=== PATIENT | female | born 1995 | race Caucasian/White ===

== ENCOUNTER → 2016-12-14 | Emergency (ER) | payer OTHER ==
[~2016-12-14] MED LIST: ALBUTEROL0.09 MG/A1 INH; AMOXICILLIN500 M2 PO; AMOXICILLIN500 MG PO; AMOXIL250 M1 PO; ANAPROX DS550 MG PO; AUGMENTIN 875875 MG PO; BACTRIM DS 8001 TA1 PO; BENADRYL25 MG PO; BIRTH CONTROL1 EAC1 PO; CATAFLAM50 MG PO; CEPHALEXIN500 M1 PO; CIPRO500 MG PO; CLARITIN10 MG PO; CLOTRIM ANTIFUNGAL1% TP; DEPO PROVER150 MG/M1 IM; DIFLUCAN150 MG PO; HYDROCODONE BIT1 T11 PO; IBU-4400 MG PO; IBU-6600 MG PO; KEFLEX500 MG PO; KENALOG0.1% TP; LOMOTIL 0.025 M1 TA1 PO; MEDROL DOSEPAK4 MG PO; MOTRIN400 MG PO; MOTRIN600 MG PO; MOTRIN800 MG PO; NASONEX0.05 MG/AC NAS; NKHM; PEPCID20 MG PO; PREDNICOT20 MG PO; PREDNISONE20 M1 PO; PROAIR HFA0.09 MG/AC IH; PROVENTIL0.09 MG/AC IH; REGLAN10 M1 PO; ROBAXIN500 MG PO; ROBITUSSIN AC 10 MG/ PO; ROBITUSSIN DM 105 ML PO; TRAMADOL HCL50 MG PO; ULTRAM50 MG PO; VENTOLIN 02.5 MG/3 M; VISTARIL25 M1 PO; ZITHROMAX Z PA250 MG PO; ZOFRAN ODT4 MG SL; ZOFRAN ODT8 MG PO
[2016-12-14 21:42] LABS: BILIRUBIN NEGATIVE (NEGATIVE); BLOOD NEGATIVE (NEGATIVE); CLARITY SL CLOUDY (CLEAR); COLOR YELLOW (YELLOW); GLUCOSE NEGATIVE (NEGATIVE); KETONE 3+ (NEGATIVE); LEUKO ESTERASE NEGATIVE (NEGATIVE); NITRITE NEGATIVE (NEGATIVE); PH 5.5 (5.0-9.0); PROTEIN TRACE (NEGATIVE); SPECIFIC GRAVITY >= 1.030 (1.005-1.030)
[2016-12-14 22:01] LABS: BACTERIA 2+; URINE REFLEX COMMENT YES (NO)
== END ==
LOC: ED 18:09
PROVIDERS: Registered Nurse
DX: O26.891 Other specified pregnancy related conditions, first trimester (principal); Z3A.11 11 weeks gestation of pregnancy

== ENCOUNTER 2017-01-28 21:45 | Emergency (ER) | payer OTHER ==
[~2017-01-28] VITALS: Ht 162.5 cm; Wt 67.1 kg
[2017-01-28] MEDS ORDERED: PREDNISONE20 M1 PO (22:07)
== END 2017-01-28 22:24 | disposition home or self-care (01) ==
LOC: ED 21:45
DX: O26.892 Other specified pregnancy related conditions, second trimester (principal); L24.9 Irritant contact dermatitis, unspecified cause; Z3A.18 18 weeks gestation of pregnancy

== ENCOUNTER 2017-03-15 21:27 | Emergency (ER) | payer OTHER ==
[~2017-03-15] VITALS: Ht 162.5 cm; Wt 71.7 kg
[2017-03-15] MEDS ORDERED: PRENATA CHEWAB1 EACH PO (21:41)
[2017-03-15 22:10] LABS: BASO % 0.3 % (0.0-1.0); EOS # 0.1 10*3/uL (0.0-0.4); EOS % 0.5 % (1.0-4.0); HEMATOCRIT 30.1 % (37.0-47.0); HEMOGLOBIN 10.5 g/dl (12.0-16.0); IG # 0.1 10*3/uL (0.0-0.1); LYMPH % 15.2 % (27.0-41.0); MEAN CELL VOLUME 91.2 fl (81.0-99.0); MEAN CORPUSCULAR HGB 31.8 pg (27.0-31.0); MEAN CORPUSCULAR HGB CONC 34.9 g/dl (33.0-37.0); MEAN PLATELET VOLUME 10.9 fl (9.6-12.3); MONO # 0.8 10*3/uL (0.1-1.0); NEUT # 10.1 10*3/uL (2.3-7.9); NEUT % 77.3 % (47.0-73.0); PLATELET COUNT AUTOMATED 220 10*3/uL (130-400); RED CELL DISTRI WIDTH 12.7 % (0-14.5); WHITE BLOOD COUNT 13.1 10*3/uL (4.8-10.8)
[2017-03-15 22:21] LABS: BUN 5 mg/dl (7-24); CARBON DIOXIDE 24 mmol/L (21-32); CHLORIDE 105 mmol/L (98-107); EST GLOM FILT AFRICAN AMERICAN > 60 ml/min; GLUCOSE 84 mg/dL (65-99); POTASSIUM 3.5 mmol/L (3.5-5.1); SODIUM 139 mmol/L (136-145)
[2017-03-15] MEDS ORDERED: SALINE NOSE SPR45 ML NAS (22:47)
== END 2017-03-15 23:25 | disposition home or self-care (01) ==
LOC: ED 21:27
PROVIDERS: Physician Assistant
DX: O26.892 Other specified pregnancy related conditions, second trimester (principal); R04.0 Epistaxis; Z3A.22 22 weeks gestation of pregnancy; Z79.899 Other long term (current) drug therapy

== ENCOUNTER 2017-03-18 20:25 | Emergency (ER) | payer OTHER ==
[~2017-03-18] VITALS: Ht 162.5 cm; Wt 72.6 kg
[~2017-03-18 20:25] MED LIST changes: +PRENATA CHEWAB1 EACH PO; +SALINE NOSE SPR45 ML NAS
== END 2017-03-18 22:20 | disposition short-term general hospital (02) ==
LOC: ED 20:25
DX: O26.892 Other specified pregnancy related conditions, second trimester (principal); M54.5 Low back pain; R10.9 Unspecified abdominal pain; Z79.899 Other long term (current) drug therapy; Z3A.25 25 weeks gestation of pregnancy

== ENCOUNTER 2018-05-21 18:23 | Emergency (ER) | payer OTHER ==
[~2018-05-21] VITALS: Ht 162.5 cm; Wt 72.6 kg
[2018-05-21] MEDS ORDERED: BENADRYL ALLERG25 M5 PO (20:00)
== END 2018-05-21 19:59 | disposition home or self-care (01) ==
LOC: ED 18:23
DX: T63.441A Toxic effect of venom of bees, accidental (unintentional), initial encounter (principal); Z79.899 Other long term (current) drug therapy; Y92.9 Unspecified place or not applicable

== ENCOUNTER 2018-08-02 19:05 | Emergency (ER) | payer MEDICAID ==
[~2018-08-02] VITALS: Ht 162.5 cm; Wt 79.4 kg
[~2018-08-02 19:05] MED LIST changes: +BENADRYL ALLERG25 M5 PO
[2018-08-02] MEDS ORDERED: MUCINEX1200 M1 PO (20:54)
[2018-08-02] MEDS ORDERED: AVPAK AZITHROM250 MG PO (20:54)
[2018-08-02] MEDS ORDERED: PROAIR HFA8.5 GM INH (20:54)
[2018-08-02] MEDS ORDERED: PREDNISONE20 M1 PO (20:54)
== END 2018-08-02 21:00 | disposition home or self-care (01) ==
LOC: ED 19:05
DX: J20.9 Acute bronchitis, unspecified (principal); J09.X2 Influenza due to identified novel influenza A virus with other respiratory manifestations; Z91.010 Allergy to peanuts

== ENCOUNTER 2018-09-27 20:37 | Emergency (ER) | payer MEDICAID ==
[~2018-09-27] VITALS: Ht 162.5 cm; Wt 77.1 kg
[~2018-09-27 20:37] MED LIST changes: +AVPAK AZITHROM250 MG PO; +MUCINEX1200 M1 PO; +PROAIR HFA8.5 GM INH
[2018-09-27] MEDS ORDERED: Motrin,Rufen800 MG PO (22:20)
== END 2018-09-27 22:25 | disposition home or self-care (01) ==
LOC: ED 20:37
DX: M25.562 Pain in left knee (principal); Z91.010 Allergy to peanuts; Z79.2 Long term (current) use of antibiotics; Z79.899 Other long term (current) drug therapy

== ENCOUNTER 2019-08-02 21:56 | Emergency (ER) | payer SELFPAY ==
[~2019-08-02] VITALS: Ht 162.5 cm; Wt 77.1 kg
--- NOTE | ~2019-08-02 | EKG ---
[place], [place] ELECTROCARDIOGRAM REPORT NAME: MARICRUZ SUAREZ UNIT #: [id number] ROOM: DOCTOR: EPIPHANY DRAFT REPORT BIRTHDATE: [birth year] [facility] Test Date: 2019-08-02 Test Time: 22:41:27 Pat Name: MARICRUZ SUAREZ Department: Room: Gender: F [employer]: : 1995 Requested By: NOHELIA NELSON PA-C Order Number: [id number] Reading MD: Ruperto Hinojosa MD Measurements Intervals [place] Rate: 77 P: 61 CA: 183 QRS: 29 QRSD: 94 T: 15 QT: 381 QTc: 432 Interpretive Statements Sinus rhythm Nonspecific ST T changes Electronically Signed On 08-03-2019 4:32:00 PST by Ruperto Hinojosa MD CM:EKGRPT:ELECTROCARDIOGRAM REPORT [id number] NOHELIA NELSON PA-C EPIPHANY DRAFT REPORT NOHELIA NELSON PA-C
[~2019-08-02 21:56] MED LIST changes: +Motrin,Rufen800 MG PO
[2019-08-02 22:42] LABS: BASO # 0.1 10*3/uL (0.0-0.1); BASO % 0.3 % (0.0-1.0); EOS # 0.1 10*3/uL (0.0-0.4); EOS % 0.4 % (1.0-4.0); HEMATOCRIT 31.9 % (37.0-47.0); HEMOGLOBIN 10.5 g/dl (12.0-16.0); LYMPH # 1.5 10*3/uL (1.3-4.4); LYMPH % 9.2 % (27.0-41.0); MEAN CELL VOLUME 94.7 fl (81.0-99.0); MEAN CORPUSCULAR HGB 31.2 pg (27.0-31.0); MEAN CORPUSCULAR HGB CONC 32.9 g/dl (33.0-37.0); MEAN PLATELET VOLUME 11.7 fl (9.6-12.3); MONO # 0.9 10*3/uL (0.1-1.0); MONO % 5.4 % (3.0-9.0); NEUT # 13.8 10*3/uL (2.3-7.9); NEUT % 83.7 % (47.0-73.0); PLATELET COUNT AUTOMATED 178 10*3/uL (130-400); RED BLOOD COUNT 3.37 10*6/uL (4.10-5.10); RED CELL DISTRI WIDTH 12.1 % (0-14.5); WHITE BLOOD COUNT 16.5 10*3/uL (4.8-10.8)
[2019-08-02 23:00] LABS: ALBUMIN 2.7 gm/dl (3.1-4.5); ALKALINE PHOSPHATASE 68 U/L (45-117); BUN 9 mg/dl (7-24); CHLORIDE 108 mmol/L (98-107); CREATININE 0.49 mg/dL (0.55-1.02); LIPASE 103 U/L (73-393); POTASSIUM 3.6 mmol/L (3.5-5.1); SGOT/AST 41 IU/L (3-35); SGPT/ALT 23 U/L (12-78); SODIUM 140 mmol/L (136-145); TOTAL PROTEIN 6.4 gm/dL (6.4-8.2)
[2019-08-02 23:03] LABS: TROPONIN I < 0.015 ng/ml (<0.045)
== END 2019-08-03 02:16 | disposition home or self-care (01) ==
LOC: ED 21:56
PROVIDERS: Physician Assistant
DX: O26.892 Other specified pregnancy related conditions, second trimester (principal); R55 Syncope and collapse; R10.13 Epigastric pain; R53.1 Weakness; J45.909 Unspecified asthma, uncomplicated; Z91.010 Allergy to peanuts; Z3A.27 27 weeks gestation of pregnancy

== ENCOUNTER 2019-12-11 16:40 | Emergency (ER) | payer SELFPAY ==
[~2019-12-11] VITALS: Ht 162.5 cm; Wt 79.4 kg
[2019-12-11 17:54] LABS: BASO # 0.1 10*3/uL (0.0-0.1); BASO % 0.7 % (0.0-1.0); EOS # 0.1 10*3/uL (0.0-0.4); EOS % 0.8 % (1.0-4.0); HEMATOCRIT 40.4 % (37.0-47.0); LYMPH # 2.2 10*3/uL (1.3-4.4); LYMPH % 24.3 % (27.0-41.0); MEAN CORPUSCULAR HGB 29.4 pg (27.0-31.0); MEAN CORPUSCULAR HGB CONC 31.9 g/dl (33.0-37.0); MEAN PLATELET VOLUME 11.7 fl (9.6-12.3); MONO # 0.6 10*3/uL (0.1-1.0); MONO % 6.8 % (3.0-9.0); NEUT # 6.2 10*3/uL (2.3-7.9); NEUT % 67.2 % (47.0-73.0); PLATELET COUNT AUTOMATED 244 10*3/uL (130-400); RED BLOOD COUNT 4.39 10*6/uL (4.10-5.10); RED CELL DISTRI WIDTH 13.6 % (0-14.5); WHITE BLOOD COUNT 9.2 10*3/uL (4.8-10.8)
[2019-12-11 18:11] LABS: ALBUMIN 4.1 gm/dl (3.1-4.5); ALKALINE PHOSPHATASE 64 U/L (45-117); BETA-HCG, QUANT < 1.0 mIU/mL (1-3); BUN 19 mg/dl (7-24); CHLORIDE 109 mmol/L (98-107); CREATININE 0.87 mg/dL (0.55-1.02); LIPASE 107 U/L (73-393); SGOT/AST 9 IU/L (3-35); SGPT/ALT 22 U/L (12-78); SODIUM 139 mmol/L (136-145); TROPONIN I < 0.015 ng/ml (<0.045)
[2019-12-11 19:02] LABS: ACT PARTIAL THROMBO TIME 26.2 SECONDS (20.0-32.1); INTERNATIONAL NORM RATIO 0.9 (2.0-3.5)
== END 2019-12-11 19:40 | disposition short-term general hospital (02) ==
LOC: ED 16:40
PROVIDERS: Emergency Medicine
DX: I63.9 Cerebral infarction, unspecified (principal); J45.909 Unspecified asthma, uncomplicated

== ENCOUNTER 2019-12-31 12:32 | Emergency (ER) | payer OTHER ==
[~2019-12-31] VITALS: Ht 162.5 cm; Wt 79.4 kg
[2019-12-31 13:03] LABS: BASO % 0.5 % (0.0-1.0); EOS # 0.1 10*3/uL (0.0-0.4); EOS % 0.7 % (1.0-4.0); HEMATOCRIT 35.6 % (37.0-47.0); LYMPH % 23.3 % (27.0-41.0); MEAN CELL VOLUME 90.1 fl (81.0-99.0); MEAN CORPUSCULAR HGB 29.4 pg (27.0-31.0); MEAN CORPUSCULAR HGB CONC 32.6 g/dl (33.0-37.0); MEAN PLATELET VOLUME 11.2 fl (9.6-12.3); MONO # 0.5 10*3/uL (0.1-1.0); MONO % 6.3 % (3.0-9.0); NEUT # 5.8 10*3/uL (2.3-7.9); NEUT % 68.8 % (47.0-73.0); PLATELET COUNT AUTOMATED 249 10*3/uL (130-400); RED BLOOD COUNT 3.95 10*6/uL (4.10-5.10); RED CELL DISTRI WIDTH 13.5 % (0-14.5); WHITE BLOOD COUNT 8.4 10*3/uL (4.8-10.8)
[2019-12-31 13:13] LABS: ACT PARTIAL THROMBO TIME 23.1 SECONDS (20.0-32.1); INTERNATIONAL NORM RATIO 0.9 (2.0-3.5)
[2019-12-31 13:21] LABS: ALBUMIN 3.7 gm/dl (3.1-4.5); ALKALINE PHOSPHATASE 84 U/L (45-117); BUN 21 mg/dl (7-24); CHLORIDE 106 mmol/L (98-107); CREATININE 0.78 mg/dL (0.55-1.02); POTASSIUM 3.9 mmol/L (3.5-5.1); SGOT/AST 70 IU/L (3-35); SGPT/ALT 61 U/L (12-78); SODIUM 137 mmol/L (136-145); TOTAL PROTEIN 7.4 gm/dL (6.4-8.2)
[2019-12-31 13:24] LABS: TROPONIN I < 0.015 ng/ml (<0.045)
[2019-12-31] MEDS ORDERED: PRILOSEC20 M1 PO (13:56)
== END 2019-12-31 14:07 | disposition home or self-care (01) ==
LOC: ED 12:32
PROVIDERS: Emergency Medicine
DX: K21.0 Gastro-esophageal reflux disease with esophagitis (principal); R11.10 Vomiting, unspecified; M54.2 Cervicalgia; G43.909 Migraine, unspecified, not intractable, without status migrainosus; J45.909 Unspecified asthma, uncomplicated; Z91.010 Allergy to peanuts

== ENCOUNTER 2021-04-20 16:17 | Emergency (ER) | payer OTHER ==
[~2021-04-20] VITALS: Ht 162.5 cm; Wt 94.3 kg
[~2021-04-20 16:17] MED LIST changes: +PRILOSEC20 M1 PO
[2021-04-20] MEDS ORDERED: PREDNISONE20 M1 PO (20:32)
[2021-04-20] MEDS ORDERED: PROVENTIL HFA6.7 GM INH (20:32)
== END 2021-04-20 20:39 | disposition home or self-care (01) ==
LOC: ED 16:17
DX: U07.1 COVID-19 (principal); Z91.010 Allergy to peanuts; Z79.899 Other long term (current) drug therapy

== ENCOUNTER 2021-11-21 10:40 | Emergency (ER) | payer BC ==
[~2021-11-21] VITALS: Ht 160 cm; Wt 84.4 kg
[~2021-11-21 10:40] MED LIST changes: +PROVENTIL HFA6.7 GM INH
[2021-11-21 11:15] LABS: BILIRUBIN Negative (Negative); BLOOD Negative (Negative); CLARITY Cloudy (Clear); COLOR Yellow (Yellow); GLUCOSE Negative (Negative); KETONE Trace (Negative); LEUKO ESTERASE 2+ (Negative); NITRITE Negative (Negative); PH 5.5 (4.5-8.0); SPECIFIC GRAVITY 1.025 (1.001-1.030)
[2021-11-21 11:18] LABS: BASO # 0.1 10*3/uL (0.0-0.1); BASO % 0.7 % (0.0-1.0); EOS % 0.4 % (1.0-4.0); HEMATOCRIT 39.1 % (37.0-47.0); LYMPH # 1.6 10*3/uL (1.3-4.4); LYMPH % 17.4 % (27.0-41.0); MEAN CELL VOLUME 91.8 fl (81.0-99.0); MEAN CORPUSCULAR HGB 30.3 pg (27.0-31.0); MEAN PLATELET VOLUME 11.5 fl (9.6-12.3); MONO # 0.4 10*3/uL (0.1-1.0); NEUT # 6.9 10*3/uL (2.3-7.9); NEUT % 77.4 % (47.0-73.0); PLATELET COUNT AUTOMATED 258 10*3/uL (130-400); RED BLOOD COUNT 4.26 10*6/uL (4.10-5.10); RED CELL DISTRI WIDTH 12.9 % (0-14.5); WHITE BLOOD COUNT 8.9 10*3/uL (4.8-10.8)
[2021-11-21 11:27] LABS: MUCOUS 1+
[2021-11-21 11:28] LABS: EPITHELIAL CELLS 21-30
[2021-11-21 11:29] LABS: BACTERIA 3+
[2021-11-21 11:33] LABS: ALKALINE PHOSPHATASE 65 U/L (45-117); BUN 12 mg/dl (7-24); CHLORIDE 107 mmol/L (98-107); CREATININE 0.76 mg/dL (0.55-1.02); LIPASE 104 U/L (73-393); SGOT/AST 49 IU/L (3-35); SGPT/ALT 172 U/L (12-78); SODIUM 138 mmol/L (136-145); TOTAL PROTEIN 7.9 gm/dL (6.4-8.2)
[2021-11-21] MEDS ORDERED: TYLENOL325 M1 PO (12:04)
[2021-11-21] MEDS ORDERED: NAPROXEN250 MG PO (12:04)
== END 2021-11-21 12:13 | disposition home or self-care (01) ==
LOC: ED 10:40
PROVIDERS: Emergency Medicine
DX: G89.18 Other acute postprocedural pain (principal); Z91.010 Allergy to peanuts

== ENCOUNTER → 2024-04-04 | Outpatient (CLI) | payer BC ==
[~2024-04-04] MED LIST changes: +NAPROXEN250 MG PO; +TYLENOL325 M1 PO
[2024-04-04 07:41] LABS: HEMATOCRIT 38.9 % (37.0-47.0); MEAN CELL VOLUME 96.5 fl (81.0-99.0); MEAN CORPUSCULAR HGB 31.5 pg (27.0-31.0); MEAN CORPUSCULAR HGB CONC 32.6 g/dl (33.0-37.0); MEAN PLATELET VOLUME 11.2 fl (9.6-12.3); PLATELET COUNT AUTOMATED 218 10*3/uL (130-400); RED BLOOD COUNT 4.03 10*6/uL (4.10-5.10); RETICULOCYTE % 1.47 % (0.50-2.50); WHITE BLOOD COUNT 6.9 10*3/uL (4.8-10.8)
[2024-04-04 07:43] LABS: BILIRUBIN Negative (Negative); BLOOD Negative (Negative); CLARITY Clear (Clear); COLOR Yellow (Yellow); GLUCOSE Negative (Negative); KETONE Negative (Negative); LEUKO ESTERASE Trace (Negative); NITRITE Negative (Negative); PH 7.5 (4.5-8.0)
[2024-04-04 08:33] LABS: PLATELET SUFFICIENCY NORMAL (NORMAL); TOTAL CELLS COUNTED 100 #CELLS
[2024-04-04 08:50] LABS: ALKALINE PHOSPHATASE 50 U/L (46-116); BUN 11 mg/dl (9-23); CHLORIDE 106 mmol/L (98-107); CHOLESTEROL 138 mg/dL (<200); GAMMA GLUTAMYL TRANSPEPTIDASE 47 U/L (0-73); LDL CHOLESTEROL 73 mg/dL (9-159); POTASSIUM 4.1 mmol/L (3.4-5.1); SGPT/ALT 29 U/L (5-49); T3 UPTAKE 33.2 % (22.4-36.7); THYROXINE (T4) TOTAL 6.2 ug/dl (4.5-10.9); TRIGLYCERIDES 52 mg/dl (<150); URIC ACID 4.4 mg/dL (3.1-7.8)
[2024-04-04 08:51] LABS: VITAMIN D, 25-HYDROXY 40.8 ng/mL (30-100)
[2024-04-04 08:54] LABS: BETA-HCG, QUANT < 3.0 mIU/mL (3-10)
[2024-04-04 09:04] LABS: BACTERIA 2+; MUCOUS 1+
[2024-04-05 04:06] LABS: TOTAL PROTEIN, SERUM 6.6 g/dL (6.0-8.5)
[2024-04-05 12:08] LABS: A/G RATIO 1.3 (0.7-1.7); ALBUMIN 3.7 g/dL (2.9-4.4); ALPHA-1-GLOBULIN 0.2 g/dL (0.0-0.4); ALPHA-2-GLOBULIN 0.7 g/dL (0.4-1.0); BETA GLOBULIN 0.8 g/dL (0.7-1.3); GAMMA GLOBULIN 1.2 g/dL (0.4-1.8); GLOBULIN, TOTAL 2.9 g/dL (2.2-3.9)
[2024-04-05 14:08] LABS: ANTI-DSDNA ANTIBODIES 1 IU/mL (0-9)
== END | disposition home or self-care (01) ==
LOC: LAB 07:13
PROVIDERS: ATTEND Family Medicine
DX: E78.5 Hyperlipidemia, unspecified (principal); R79.89 Other specified abnormal findings of blood chemistry; R53.83 Other fatigue; E55.9 Vitamin D deficiency, unspecified

== ENCOUNTER → 2024-04-05 | Outpatient (CLI) | payer BC | END | disposition home or self-care (01) | LOC: US 00:27 | PROVIDERS: ATTEND Family Medicine | DX: N88.8 Other specified noninflammatory disorders of cervix uteri (principal); Z90.49 Acquired absence of other specified parts of digestive tract ==

== ENCOUNTER 2024-09-10 16:37 | Emergency (ER) | payer BC | END 2024-09-10 17:58 | disposition left against medical advice (07) | LOC: ED 16:37 | DX: J00 Acute nasopharyngitis [common cold] (principal); Z91.010 Allergy to peanuts; Z53.21 Procedure and treatment not carried out due to patient leaving prior to being seen by health care provider ==

== ENCOUNTER → 2025-05-07 | Outpatient (CLI) | payer SELFPAY ==
[2025-05-07 11:38] LABS: BASO # 0.0 10*3/uL (0.0-0.1); BASO % 0.4 % (0.0-1.0); EOS # 0.0 10*3/uL (0.0-0.4); EOS % 0.4 % (1.0-4.0); MEAN CELL VOLUME 95.6 fl (81.0-99.0); MEAN CORPUSCULAR HGB 31.6 pg (27.0-31.0); MEAN PLATELET VOLUME 10.9 fl (9.6-12.3); MONO # 0.6 10*3/uL (0.1-1.0); MONO % 6.3 % (3.0-9.0); NEUT # 6.4 10*3/uL (2.3-7.9); NEUT % 72.1 % (47.0-73.0); NUCLEATED RED BLOOD CELL 0.0 % (0.0-0.0); NUCLEATED RED BLOOD CELL 0.0 10*3/uL (0.0-0.0); PLATELET COUNT AUTOMATED 232 10*3/uL (130-400); RED CELL DISTRI WIDTH 11.9 % (0-14.5)
[2025-05-07 12:00] LABS: BUN 11 mg/dl (9-23); LDL CHOLESTEROL 71 mg/dL (9-159); SGPT/ALT 15 U/L (5-49)
== END | disposition home or self-care (01) ==
LOC: LAB 11:20
PROVIDERS: ATTEND Nurse Practitioner Family
DX: E66.3 Overweight (principal); R23.3 Spontaneous ecchymoses; Z86.73 Personal history of transient ischemic attack (TIA), and cerebral infarction without residual deficits

== ENCOUNTER 2025-08-12 18:43 | Emergency (ER) | payer SELFPAY ==
[~2025-08-12] VITALS: Ht 162.5 cm; Wt 81.6 kg
[2025-08-12 19:34] LABS: BASO # 0.0 10*3/uL (0.0-0.1); BASO % 0.6 % (0.0-1.0); EOS # 0.0 10*3/uL (0.0-0.4); EOS % 0.2 % (1.0-4.0); MEAN CELL VOLUME 94.1 fl (81.0-99.0); MEAN CORPUSCULAR HGB 31.3 pg (27.0-31.0); MEAN PLATELET VOLUME 10.9 fl (9.6-12.3); MONO # 0.5 10*3/uL (0.1-1.0); MONO % 10.4 % (3.0-9.0); NEUT # 3.9 10*3/uL (2.3-7.9); NEUT % 76.4 % (47.0-73.0); NUCLEATED RED BLOOD CELL 0.0 % (0.0-0.0); NUCLEATED RED BLOOD CELL 0.0 10*3/uL (0.0-0.0); PLATELET COUNT AUTOMATED 177 10*3/uL (130-400); RED CELL DISTRI WIDTH 11.9 % (0-14.5)
[2025-08-12 19:50] LABS: BUN 10 mg/dl (9-23)
[2025-08-12] MEDS ORDERED: PREDNISONE20 M1 PO (20:53)
[2025-08-12] MEDS ORDERED: AVPAK AZITHROM250 M1 PO (20:53)
[2025-08-12] MEDS ORDERED: AZITHROMYCIN 250 MG TAB PO ONE (20:55)
== END 2025-08-12 21:08 | disposition home or self-care (01) ==
LOC: ED 18:43
PROVIDERS: Nurse Practitioner Family
DX: J45.909 Unspecified asthma, uncomplicated (principal); G43.909 Migraine, unspecified, not intractable, without status migrainosus; Z87.440 Personal history of urinary (tract) infections; Z86.16 Personal history of COVID-19; Z91.010 Allergy to peanuts